=== PATIENT | female | born 1940 | race Caucasian/White ===

== ENCOUNTER 2018-02-22 09:34 | Outpatient (CLI) | payer MEDICARE, BC | END 2018-02-22 09:35 | disposition home or self-care (01) | LOC: BICMAMMO 09:34 | PROVIDERS: ATTEND Obstetrics & Gynecology | DX: Z12.31 Encounter for screening mammogram for malignant neoplasm of breast (principal); R92.1 Mammographic calcification found on diagnostic imaging of breast | CPT/HCPCS: 77063; 77067 ==

== ENCOUNTER 2019-04-02 18:19 | Emergency (ER) | payer MEDICARE, BC ==
[2019-04-02] MEDS ORDERED: Fentanyl 100 MCG/2 ML VIAL ONE (18:27)
[2019-04-02] MEDS ORDERED: Ondansetron PF 4 MG/2 ML Vial ONE (18:34)
--- NOTE | 2019-04-02 19:08 | RAD ---
Radiograph right humerus 2 views: DATE: 04/02/2019 Time: 6:32 PM HISTORY: 79-year-old female status post acute traumatic injury to the arm from fall FINDINGS: There is fracture at the proximal humeral metaphysis with mild to moderate impaction and or angulatio n. The humeral diaphysis and distal metaphysis appear to be intact. IMPRESSION: Acute, traumatic, displaced fracture of surgical neck of right humerus.
--- NOTE | 2019-04-02 19:09 | RAD ---
Radiograph right shoulder 3 views: DATE: 04/02/2019 Time: 6:35 PM HISTORY: 79-year-old female with acute traumatic right shoulder pain from fall. FINDINGS: Fracture at proximal humeral metaphysis with slight posterior angulation of distal fragment (humeral diaphysis), mild anterior angulation of fracture apex. No dislocation of glenohumeral joint. 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 IMPRESSION: Acute, traumatic, angulated and displaced fracture of surgical neck of right humerus.
[2019-04-02] MEDS ORDERED: Ketorolac Tromethamine 30 MG/ML VIAL ONE (19:22)
[2019-04-02] MEDS ORDERED: Morphine 4 MG/ML VIAL ONE (19:22)
== END 2019-04-02 19:35 | disposition home or self-care (01) ==
LOC: ERS 18:19
DX: S42.211A Unspecified displaced fracture of surgical neck of right humerus, initial encounter for closed fracture (principal); I10 Essential (primary) hypertension; E78.00 Pure hypercholesterolemia, unspecified; W18.30XA Fall on same level, unspecified, initial encounter
CPT/HCPCS: 96374; 96375; J1885; J2270; J2405; J3010

== ENCOUNTER 2019-04-10 11:36 | Emergency (ER) | payer MEDICARE, BC ==
[2019-04-10] MEDS ORDERED: Lidocaine 1% w/Epinephrine 1:100K 20 ML VIAL ONE (13:24)
== END 2019-04-10 13:45 | disposition home or self-care (01) ==
LOC: ERS 11:36
DX: L72.9 Follicular cyst of the skin and subcutaneous tissue, unspecified (principal); I10 Essential (primary) hypertension; E78.00 Pure hypercholesterolemia, unspecified; Z79.899 Other long term (current) drug therapy; Z79.82 Long term (current) use of aspirin
CPT/HCPCS: J2001

== ENCOUNTER 2019-06-19 12:49 | Outpatient (CLI) | payer MEDICARE, BC ==
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
== END 2019-06-19 12:50 | disposition home or self-care (01) ==
LOC: BICMRI 12:49
PROVIDERS: ATTEND Psychiatry & Neurology Neurology
DX: S06.890A Other specified intracranial injury without loss of consciousness, initial encounter (principal)
CPT/HCPCS: 70553; 82565

== ENCOUNTER 2020-04-23 10:51 | Outpatient (CLI) | payer MEDICARE, BC ==
--- NOTE | 2020-04-23 11:29 | MMO ---
Bilateral MAMMO Bilat Screen [facility]. CLINICAL HISTORY: Patient is 80 years old and is seen for screening. The patient has no family history of breast cancer. The patient has no personal history of cancer. VIEWS: The views performed were: bilateral craniocaudal with tomosynthesis and bilateral mediolateral oblique with tomosynthesis. FILMS COMPARED: The present examination has been compared to prior imaging studies performed at [facility] on 08/18/2014, 08/26/2015, 02/01/2017 and 02/22/2018. This study has been interpreted with the assistance of computer-aided detection. MAMMOGRAM FINDINGS: There are scattered fibroglandular densities. There are stable benign appearing calcifications seen in both breasts. There are no suspicious masses, suspicious calcifications, or new areas of architectural distortion. IMPRESSION: THERE IS NO MAMMOGRAPHIC EVIDENCE OF MALIGNANCY. A ROUTINE FOLLOW-UP MAMMOGRAM IN 1 YEAR IS RECOMMENDED. THE RESULTS OF THIS EXAM WERE SENT TO THE PATIENT. ACR BI-RADS Category 2 - Benign finding MAMMOGRAPHY NOTE: 1. A negative mammogram report should not delay a biopsy if a dominant of clinically suspicious mass is present. 2. Approximately 10% to 15% of breast cancers are not detected by mammography. 3. Adenosis and dense breasts may obscure an underlying neoplasm. Reported by: THIAGO JOYCE MD Electonically Signed: [id number]
== END 2020-04-23 10:52 | disposition home or self-care (01) ==
LOC: BICMAMMO 10:51
PROVIDERS: ATTEND Internal Medicine
DX: Z12.31 Encounter for screening mammogram for malignant neoplasm of breast (principal)
CPT/HCPCS: 77063; 77067

== ENCOUNTER 2023-08-28 09:39 | Outpatient (CLI) | payer MEDICARE, BC | END 2023-08-28 09:40 | disposition home or self-care (01) | LOC: BICMAMMO 09:39 | PROVIDERS: ATTEND Family Medicine | DX: Z12.31 Encounter for screening mammogram for malignant neoplasm of breast (principal); R05.9 Cough, unspecified | CPT/HCPCS: 71046; 77063; 77067 ==

== ENCOUNTER 2024-01-03 09:14 | Outpatient (CLI) | payer MEDICARE | END 2024-01-03 09:15 | disposition home or self-care (01) | LOC: BICMAMMO 09:14 | PROVIDERS: ATTEND Family Medicine | DX: M85.89 Other specified disorders of bone density and structure, multiple sites (principal); M81.0 Age-related osteoporosis without current pathological fracture | CPT/HCPCS: 77080 ==

== ENCOUNTER 2024-07-07 13:49 | Emergency (ER) | payer MEDICARE ==
[2024-07-07] MEDS ORDERED: Acetaminophen/Codeine 30-300mg Tablet ONE (14:52)
[2024-07-07 15:30] LABS: #Basophils 0.07 10x3/uL (0.0-0.2); %Basophils 0.5 % (0.0-1.0); %Eosinophils 1.4 % (0.0-10.0); %Lymphocytes 11.7 % (21.0-51.0); %Monocytes 4.2 % (0.0-10.0); %Neutrophils 81.4 % (42.0-75.0); Hemoglobin 12.8 g/dL (12.0-16.0); Mean Corpuscular HGB CONC 35.6 g/dL (32.0-36.0); Mean Corpuscular Hemoglobin 32.8 pg (27.0-31.0); Mean Corpuscular Volume 92.3 fL (78.0-98.0); Mean Platelet Volume 8.7 fL (7.4-10.4); Platelet Count 210 10x3/uL (130-400); RBC Distribution Width 14.4 % (11.5-14.5)
[2024-07-07 15:41] LABS: ALT (SGPT) 17 U/L (8-55); AST (SGOT) 24 U/L (5-34); Albumin 4.2 g/dL (3.4-4.8); Alkaline Phosphatase 103 U/L (40-110); Anion Gap 14 mmol/L (10-20); BUN (Urea Nitrogen) 24 mg/dL (9.8-20.1); Bilirubin, Total 0.8 mg/dL (0.2-1.2); Calc. Creatinine Clearance 0 mL/min (70-130); Calcium 9.6 mg/dL (7.8-10.44); Carbon Dioxide 23 mmol/L (23-31); Chloride 106 mmol/L (98-107); Estimated GFR 59; Glucose 152 mg/dL (83-110); Potassium 4.4 mmol/L (3.5-5.1); Protein, Total 7.2 g/dL (5.8-8.1); Sodium 139 mmol/L (136-145)
== END 2024-07-07 17:41 | disposition home or self-care (01) ==
LOC: ERS 13:49
DX: S42.212A Unspecified displaced fracture of surgical neck of left humerus, initial encounter for closed fracture (principal); I10 Essential (primary) hypertension; H40.9 Unspecified glaucoma; W01.198A Fall on same level from slipping, tripping and stumbling with subsequent striking against other object, initial encounter; Z79.899 Other long term (current) drug therapy
CPT/HCPCS: 36415; 70450; 80053; 85025

== ENCOUNTER 2025-04-24 12:39 | Outpatient (CLI) | payer MEDICARE | END 2025-04-24 12:40 | disposition home or self-care (01) | LOC: BICMAMMO 12:39 | PROVIDERS: ATTEND Family Medicine | DX: M85.89 Other specified disorders of bone density and structure, multiple sites (principal); M81.0 Age-related osteoporosis without current pathological fracture | CPT/HCPCS: 77080 ==